=== PATIENT | male | born 1960 | race Two or more races ===

== ENCOUNTER 2018-10-06 15:55 | Inpatient (IN) | payer OTHER ==
[~2018-10-06] VITALS: Ht 152.4 cm; Wt 5.0 kg
[2018-11-11] MEDS ORDERED: ASPIRIN81 MG (08:26)
[2018-11-11] MEDS ORDERED: JANUMET XR 50-1 EAC1 (08:26)
[2018-11-18] MEDS ORDERED: JANUMET 50-1,01 EACH PO (09:00)
== END 2018-11-20 16:22 | DRG 470 ==
LOC: SURG 11-12 07:00 → O/R 11-18 05:15 → SURH 11-18 05:15 → SURG 11-18 07:00 → SURH 11-18 13:46
PROVIDERS: ADMIT Orthopaedic Surgery
PROC: 0SRD0J9 Replacement of Left Knee Joint with Synthetic Substitute, Cemented, Open Approach (ICD-10-PCS; principal; 2018-11-18 11:00)
DX: M17.12 Unilateral primary osteoarthritis, left knee (principal); D62 Acute posthemorrhagic anemia; E11.9 Type 2 diabetes mellitus without complications; G47.33 Obstructive sleep apnea (adult) (pediatric); Z99.89 Dependence on other enabling machines and devices; Z79.4 Long term (current) use of insulin